=== PATIENT | female | born 1995 | race Caucasian/White ===

== ENCOUNTER 2017-09-19 01:51 | Inpatient (IN) | payer OTHER ==
--- NOTE | 2017-09-19 02:23 | EDPHY ---
H & P Stated Complaint: SI - Personal History LMP (Females 10-55): 15-21 Days Ago Current Tetanus Diphtheria and Acellular Pertussis (TDAP): Yes - Medical/Surgical History Hx Asthma: No Hx Chronic Respiratory Disease: No Hx Diabetes: No Hx Cardiac Disease: No Hx Renal Disease: No Hx Cirrhosis: No Hx Alcoholism: No Hx HIV/AIDS: No Hx Splenectomy or Spleen Trauma: No Other PMH: BIPOLAR, UMBILICAL HERNIA, TONSIL - Social History Smoking Status: Current some day smoker Time Seen by Provider: 09/19/17 02:10 HPI/ROS: Chief Complaint: Suicidal ideation HPI: 22-year-old female with a history of bipolar disorder and depression is presenting with worsening prepped depression last 3 weeks and suicidal ideation for the last 3 days. She thinks he has increasing stressors from being back at school. She has a plan to hang herself. Has a history of suicidal ideation in the past but has never made a suicide attempt but she was hospitalized and put on medical leave for depression from a year ago. She is compliant with her medications. She denies any alcohol or other drug use this morning. No other ingestions. ROS: 10 point Review of Systems is negative except as noted in the HPI. PMH: Bipolar disorder Social History: No smoking, no alcohol, no recreational drug use Family History: non-contributory Physical Exam: Gen: Awake, Alert, No Distress HEENT: Nose: no rhinorrhea Eyes: PERRLA, EOMI Mouth: Moist mucosa Neck: Supple, no JVD Chest: nontender, lungs clear to auscultation Heart: S1, S2 normal, no murmur Abd: Soft, non-tender, no guarding Back: no CVA tenderness, no midline tenderness Ext: no edema, non-tender Skin: no rash Neuro: CN II-XII intact, Sensation grossly intact, Strength 5/5 in bilateral upper and lower extremities ([place]avez) Constitutional: Initial Vital Signs Temperature (C) 36.4 C 09/19/17 01:57 Heart Rate 77 09/19/17 01:57 Respiratory Rate 16 09/19/17 01:57 Blood Pressure 128/65 H 09/19/17 01:57 O2 Sat (%) 95 09/19/17 01:57 O2 Delivery Mode Room Air Allergies/Adverse Reactions: lamotrigine [From Lamictal] Allergy (Verified 09/19/17 08:24) Rash Home Medications: Medication Instructions Recorded ARIPiprazole [Abilify 10 mg (*)] 10 mg PO DAILY 09/19/17 FLUoxetine [Prozac 20 MG (*)] 20 mg PO DAILY 09/19/17 Prazosin HCl 2 mg PO BID 09/19/17 Medical Decision Making ED Course/Re-evaluation: 719: Patient has been accepted to [address] [place] [address] Dias. This patient was [place] over to [place] at shift [place]. I filled out the appropriate transfer paperwork. (Ruddy River) [id number] patient signed out to Dr. River pending mental health evaluation ([place]avez) - Data Points Laboratory Results: Laboratory Results 09/19/17 02:39 09/19/17 02:39 Medications Given: Aripiprazole (Abilify) 10 mg PO DAILY [facility] Stop: 03/18/18 13:44 Last Admin: 09/19/17 14:28 Dose: 10 mg Hydroxyzine HCl (Hydroxyzine Hcl) 25 mg PO Q6HRS PRN PRN Reason: Anxiety or insomnia Stop: 03/18/18 10:27 Last Admin: 09/19/17 14:28 Dose: 25 mg Prazosin HCl (Minipress) 1 mg PO BID [facility] Stop: 03/18/18 20:59 Last Admin: 09/19/17 20:34 Dose: 1 mg Discontinued Medications Acetaminophen (Tylenol) 650 mg PO EDNOW ONE Stop: 09/19/17 07:10 Last Admin: 09/19/17 08:22 Dose: 650 mg Departure - Departure Disposition: [facility] IP Clinical Impression: Suicidal ideation Depression Qualifiers: Depression Type: other depression Qualified Code(s): F32.89 - Other specified depressive episodes Condition: Fair
[2017-09-19 02:59] LABS: PLATELET COUNT 282 10^3/uL (150-400)
[2017-09-19] MEDS ORDERED: ACETAMINOPHEN 325 MG TAB PO ONE (07:09)
[2017-09-19] MEDS ORDERED: MAG HYDROX/AL HYDROX/SIMETH 30 ML UDCUP PO PRN (10:26)
[2017-09-19] MEDS ORDERED: MAGNESIUM HYDROXIDE 30 ML UDCUP PO PRN (10:26)
[2017-09-19] MEDS ORDERED: ACETAMINOPHEN 325 MG TAB PO PRN (10:26)
[2017-09-19] MEDS ORDERED: GABAPENTIN 300 MG CAP PO PRN (13:39)
--- NOTE | 2017-09-19 14:26 | BCON ---
[f rep st] BEHAVIORAL HEALTH CONSULTATION INTERNAL MEDICINE CONSULTATION DATE OF CONSULTATION: 09/19/2017 REFERRING PHYSICIAN: Elvin Dias MD REASON FOR CONSULTATION: Medical clearance for inpatient behavioral health stay. HISTORY OF PRESENT ILLNESS: This patient was brought in to the emergency department with her boyfriend after experiencing suicidal ideation. She has a history of bipolar disorder and was on her medication. She was evaluated by the mental health team and admitted for further psychiatric care. She currently is without any acute complaints. PAST MEDICAL HISTORY: 1. Bipolar disorder. 2. Migraine headaches. PAST SURGICAL HISTORY: She has not had any surgeries. MEDICATIONS: 1. Aripiprazole 10 mg daily. 2. Fluoxetine 20 mg daily. 3. Prazosin 2 mg b.i.d. ALLERGIES: Lamotrigine. SOCIAL HISTORY: She lives with her boyfriend. She is a nonsmoker and uses occasional alcohol. 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 FAMILY HISTORY: Noncontributory. REVIEW OF SYSTEMS: She denies headache at present. She reports intermittent leg pain and ankle pain, which she notices at night. Sometimes the pain occurs together with swelling, but not always. It can interfere with attaining sleep, but does not awaken her from sleep. She denies any joint stiffness. She denies fever, chills, weight change, cough, dyspnea, nausea, vomiting, constipation, diarrhea, or dysuria. Otherwise, a 10-point review of systems is negative. PHYSICAL EXAM: VITAL SIGNS: Blood pressure is 115/72, heart rate 92, respiratory rate 20, oxygen saturation 94% on room air, and temperature is 36.9 degrees centigrade. Her weight is 59 kg for a body mass index of 25. GENERAL: This is an overweight appearing woman who appears her chronologic age. She is cooperative and in no acute distress. HEENT: Extraocular movements are intact. Pupils are dilated, round, and reactive. Mucous membranes are moist. Dentition is in good condition. NECK: Supple. HEART: Regular rate and rhythm with no murmurs, rubs, or gallops. LUNGS: Clear to auscultation bilaterally. ABDOMEN: Benign. EXTREMITIES: There is no cyanosis, clubbing, or edema. She is nontender in the lower legs. She has normal range of motion at the ankles. There is no joint effusion. NEUROLOGIC: She is alert and oriented x3. Cranial nerves 2-12 are grossly intact. There is no focal weakness. Sensation is intact to light touch and gait is within normal limits. LABORATORY DATA: Labs from emergency department reveal a CBC that was overall within normal limits. She had a slight elevation of absolute monocytes of no clinical significance. Serum chemistry revealed a slightly low carbon dioxide at 21. BUN was low at 5. Otherwise, renal function and electrolytes were within normal limits. Beta hCG was negative for . Toxicology screens in the urine and serum were negative for ethyl alcohol and substances of abuse. ASSESSMENT AND RECOMMENDATIONS: 1. Bipolar disorder with suicidal ideation, pending further evaluation and management per Psychiatry and the mental health team. 2. Migraines with last headache approximately 2 months ago. They do not appear to be frequent enough to merit prophylactic medication. She has acetaminophen ordered, which should be adequate. 3. Intermittent leg pain of unclear etiology. This does not seem to be consistent with any rheumatologic disease. She was advised to follow up with primary care after discharge. 4. I see no medical contraindications to this patient's continued stay on the inpatient behavioral health unit or to any psychiatric medications or procedures. Thank you very much for including me in the care of this patient and please do not hesitate to contact me or the hospitalist service should there be need for further medical evaluation. /[id number]/MODL MTDD
[2017-09-19] MEDS: ARIPiprazole 10 MG TAB PO SCH (14:28)
[2017-09-19] MEDS: hydrOXYzine HCL 25 MG TAB PO PRN (14:28)
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
[2017-09-19] MEDS: PRAZOSIN HCL 1 MG CAP PO SCH (20:34)
[2017-09-20 07:22] VITALS: RESP 14; O2SAT 96
[2017-09-20] MEDS: ARIPiprazole 10 MG TAB PO SCH (08:54)
[2017-09-20] MEDS: PRAZOSIN HCL 1 MG CAP PO SCH ×2 (08:55→20:18)
[2017-09-20] MEDS: hydrOXYzine HCL 25 MG TAB PO PRN (09:22)
--- NOTE | 2017-09-20 15:42 | SOAPPROG ---
SOAP Progress Note Assessment/Plan: Assessment: 22 yo female, part-time [employer] student, lives with parents in [place]. She has h/ o bipolar do, borderline personality traits. She was admitted for threatening to hang herself. She tied rope around her neck, but took it off and told her BF what she'd done. Plan: 09/20/17 15:36 1. [facility] - Dr. Jennings made medication adjustments yesterday. Patient says hydroxyzine is "helping" her anxiety. She denies any SI/HI. Feels "less depressed." 2. Recommend DBT or similar individual and group therapy to improve coping skills and help patient deal more effectively with stressors. Patient admits she has labile mood. This is more likely d/t poor affect regulation consistent with personality disorder rather than true bipolar sarabjit. Subjective: Met with patient, reviewed chart and d/w staff. Patient says she is feeling "better" since starting hydroxyzine for her anxiety. She said she felt "sad" and was crying this AM in her room b/c she felt "scared and anxious." However, by this afternoon, patient was feeling "much better" and was smiling and laughing with peers. She admits "when I'm distracted" and has something "other than myself" to focus on, she feels "happy" and less anxious. She says her moods "change very frequently" and have "a lot" to do with what is going on around her, especially what other people are doing and how they are treating her. She says she is "very sensitive" to other people's reactions to her. Patient says she believes her mood instability is a sign of "mixed state" of bipolar disorder. This MD believes her poor affect regulation, poor self-image and heightened sensitivity to the way she is treated by others is a stronger indicator of borderline personality disorder rather than bipolar disorder. MD recommend MMPI or similar personality inventory to get clearer picture of the nature of her mood lability. She denies any SI/HI today. Objective: Vital Signs Temp Pulse Resp BP Pulse Ox 36.5 C 96 14 114/56 L 96 09/20/17 06:00 09/20/17 06:00 09/20/17 06:00 09/20/17 06:00 09/20/17 06:00 MSE: Affect: Euthymic (c/o sadness earlier in day, but none present when MD saw patient) Mood: "Fine" TP: Linear TC: No SI/HI, no AH/VH Insight/Judgment: Poor - Time Spent With Patient Time Spent With Patient: 25" - Pending Discharge Pending Discharge Within 24 Hours: No Pending Discharge Within 48 Hours: No ICD10 Worksheet Patient Problems: Problems Problem Status Onset Depression Acute Suicidal ideation Acute
[2017-09-21 06:30] VITALS: TEMP 98
[2017-09-21] MEDS: PRAZOSIN HCL 1 MG CAP PO SCH ×2 (10:00→20:35)
[2017-09-21] MEDS: ARIPiprazole 10 MG TAB PO SCH (10:00)
--- NOTE | 2017-09-21 15:06 | SOAPPROG ---
SOAP Progress Note Assessment/Plan: Assessment: 22 yo female, part-time [employer] student, lives with parents in [place]. She has h/ o bipolar do, borderline personality traits. She was admitted for threatening to hang herself. She tied rope around her neck, but took it off and told her BF what she'd done. Plan: 09/20/17 15:36 1. [facility] - Dr. Jennings made medication adjustments yesterday. Patient says hydroxyzine is "helping" her anxiety. She denies any SI/HI. Feels "less depressed." 2. Recommend DBT or similar individual and group therapy to improve coping skills and help patient deal more effectively with stressors. Patient admits she has labile mood. This is more likely d/t poor affect regulation consistent with personality disorder rather than true bipolar sarabjit. 09/21/17 15:03 1. CCM - patient doing "a lot better" today, denies any depressed mood, no crying, no sadness, denies any SI/HI 2. Likely to d/c tomorrow when hold expires. 3. Needs f/u with therapist, referral to IOP recommended if patient willing to go and f/u with prescriber. Subjective: Met with patient, reviewed chart and d/w staff. Patient present with bright, cheerful affect, smiling and laughing with peers in group. She tells that she has been feeling "much better" since yesterday afternoon. No further episodes of mood lability, sadness, crying or depression. She denies feeling helpless, hopeless and denies any SI/HI. Objective: Vital Signs Temp Pulse Resp BP Pulse Ox 36.6 C 85 14 103/56 L 96 09/21/17 06:00 09/21/17 06:00 09/21/17 06:00 09/21/17 06:00 09/21/17 06:00 MSE: Affect: Euthymic Mood: "Good" TP: Linear TC: Denies any SI/HI, no evidence of psychosis Insight/Judgment: Fair - Time Spent With Patient Time Spent With Patient: 20" - Pending Discharge Pending Discharge Within 24 Hours: No Pending Discharge Within 48 Hours: No ICD10 Worksheet Patient Problems: Problems Problem Status Onset Depression Acute Suicidal ideation Acute
[2017-09-21] MEDS: hydrOXYzine HCL 25 MG TAB PO PRN (20:35)
[2017-09-22] MEDS: ARIPiprazole 10 MG TAB PO SCH (08:50)
[2017-09-22] MEDS: PRAZOSIN HCL 1 MG CAP PO SCH (08:50)
--- NOTE | 2017-09-22 15:12 | SOAPPROG ---
SOAP Progress Note Assessment/Plan: Assessment: 22 yo female, part-time [employer] student, lives with parents in [place]. She has h/ o bipolar do, borderline personality traits. She was admitted for threatening to hang herself. She tied rope around her neck, but took it off and told her BF what she'd done. Plan: 09/20/17 15:36 1. [facility] - Dr. Jennings made medication adjustments yesterday. Patient says hydroxyzine is "helping" her anxiety. She denies any SI/HI. Feels "less depressed." 2. Recommend DBT or similar individual and group therapy to improve coping skills and help patient deal more effectively with stressors. Patient admits she has labile mood. This is more likely d/t poor affect regulation consistent with personality disorder rather than true bipolar sarabjit. 09/21/17 15:03 1. CCM - patient doing "a lot better" today, denies any depressed mood, no crying, no sadness, denies any SI/HI 2. Likely to d/c tomorrow when hold expires. 3. Needs f/u with therapist, referral to IOP recommended if patient willing to go and f/u with prescriber. 09/22/17 15:08 1. Patient says meds are "helping a lot" with her anxiety and mood. She denies feeling depressed and denies any SI/HI. 2. Will change Prazosin to HS dosing only since patient is taking for nightmares. She had low DBP (< 60) the last 2 days. 3. Patient has f/u with OP therapist, Maria G Nobles, on 09/23/17 at 1700. 4. Will d/c tomorrow Subjective: Met with patient, reviewed chart and d/w staff. Patient present bright affect, cheerful, smiling. She says she is "pleased I got my hope back." She states that she feels "more stable" and "calm." She says the gabapentin and hydroxyzine make her feel "a lot less restless." She rates her depression as 1/ 10 and denies any thoughts, plan or intent to hurt herself. Objective: Vital Signs Temp Pulse Resp BP Pulse Ox 36.6 C 85 14 103/56 L 96 09/21/17 06:00 09/21/17 06:00 09/21/17 06:00 09/21/17 06:00 09/21/17 06:00 MSE: Affect: Euthymic Mood: "A lot better" TP: Linear TC: Denies any SI/HI Insight/Judgment: Fair - Time Spent With Patient Time Spent With Patient: 20" - Pending Discharge Pending Discharge Within 24 Hours: No Pending Discharge Within 48 Hours: No ICD10 Worksheet Patient Problems: Problems Problem Status Onset Depression Acute Suicidal ideation Acute
[2017-09-22] MEDS ORDERED: PRAZOSIN HCL 1 MG CAP PO SCH (21:00)
[2017-09-23 06:57] VITALS: BP 98/55; PULSE 82
[2017-09-23] MEDS: ARIPiprazole 10 MG TAB PO SCH (08:41)
--- NOTE | 2017-09-23 16:04 | BDS ---
[f rep st] BEHAVIORAL HEALTH DISCHARGE SUMMARY REASONS FOR ADMISSION: The patient is 22-year-old female with a history of bipolar disorder and depr ession, who was presenting with worsening depression x 3 weeks and suicidal ideation for the last 3 d ays. She thinks she has increasing stressors due to being back in school. She had a plan to hang he rself, made a noose but then set it aside and called her boyfriend instead, told him what she was matthew nning to do. She has a history of SI but has never made a suicide attempt in the past. ADMITTING DIAGNOSES: 1. Bipolar disorder, most recent episode mixed. 2. Borderline personality traits. 3. Psychosocial stressors include academic stress, lack of social support, conflict with boyfriend. PHYSICAL EXAMINATION: Please see Dr. Dontrell Hugo's H and P for details. ADMISSION LABS: White cell count was 8.3, hemoglobin 14.3, hematocrit 41.5, platelet count 282. Sod ium was 139, potassium was 3.8, chloride was 105, hemoglobin A1c was 5.2, AST was 26, ALT was 33. Tr iglycerides 34, cholesterol 148, LDL 74, HDL 68. TSH 4.620. Beta HCG was negative. Her urine drug screen was negative for all substances. HOSPITAL COURSE: This MD saw the patient over the weekend after she was admitted, noted that Dr. Dwain fung had made some medication adjustments including adding gabapentin at h.s. for anxiety as well as p.r.n. hydroxyzine. The patient stated that these medications were "very helpful" and that she was r eporting much less anxiety and she was sleeping much better. She also felt much less depressed. She was denying any thoughts, plans or intents to hurt herself. She said that she had briefly felt scar ed and anxious when she was first admitted to the hospital, but said that those feelings had gone anabell y very quickly. When MD met with the patient, her presentation was very bright and cheerful, she was laughing and smi ling, very polite and pleasant. She was interacting appropriately with her peers, attending groups a nd participating in milieu activities. She said that, "when I am distracted and have something to do , I feel much better." She says normally, her moods change "very frequently" but during her hospital course, patient said that she felt much more "stable" and said that her moods were much more "consis tent". She says she is usually "very sensitive" to other people's reactions to her, and she says sandoval t when other people do not treat her well or she feels bad about something that she has done, that ravi guzman gets very depressed and sad. She admitted that she did have a whole lot of coping techniques or sk ills to use when she was dealing with stress or interpersonal conflict, and suggested that she gissel ht want to participate in a DBT IOP or similar type of group therapy to work on developing interperso nal skills. The patient thought that was a good idea. On day of discharge, the patient says she was "very happy" to be going home. Her boyfriend came to p ick her up. She said that things are "much better" for her. She denied feeling depressed. She jose ed any anxiety. She said that she has been sleeping "a whole lot better" since she has been here. N o episodes of panic. She denied feeling hopeless, helpless. Denies anhedonia. She was sleeping wel l and eating well. During her hospital stay, she denied any thoughts, plans or intents to hurt herse lf or hurt anyone else. She is looking forward to participating in group therapy. She is going to g o back to seeing her outpatient therapist, as well as her outpatient prescriber. She felt like the m edications were "helping", and that she would like to stay on them. DISCHARGE MEDICATIONS: The patient was given a prescription for Abilify 10 mg p.o. daily, 30 tabs, n o refills. Neurontin 200 mg p.o. at bedtime p.r.n., 30 caps, no refills. Hydroxyzine 25 mg daily p. r.n. 30 tabs, no refills. Prazosin 1 mg p.o. at bedtime, 30 tabs, no refills. The patient was put o n prazosin for nightmares and she said it was very helpful for her. DISCHARGE DIAGNOSES: 1. Major depressive disorder, recurrent, severe, without psychotic features. 2. Borderline personality disorder. 3. Psychosocial stressors include lack of social support, conflict with boyfriend and academic stres sors. Lack of personal coping skills. CONDITION AT DISCHARGE: Stable. Patient reports that her mood is "really good." Patient says that she is feeling "happy" today. Denies any thoughts, plans or intents to hurt herself or anyone else. She denies feeling depressed. ATTITUDE: Patient is "very excited" about going back home, getting back to school and pursuing outpa tient treatment. FOLLOWUP APPOINTMENTS: The patient is scheduled to see Maria G Hector on 09/23/2017 at 5 p.m., and then she has a followup with Oh Vaughn MD, her prescriber. She has an intake referral for the outpatient clinic at [facility] for possible IOP admission. /[id number]/MODL
== END 2017-09-23 11:25 | disposition home or self-care (01) | DRG 885 ==
LOC: BBEH 09:59
PROVIDERS: ADMIT Psychiatry & Neurology Psychiatry; ATTEND Psychiatry & Neurology Psychiatry
DX: F33.2 Major depressive disorder, recurrent severe without psychotic features (principal); F60.3 Borderline personality disorder; Z72.0 Tobacco use; G43.909 Migraine, unspecified, not intractable, without status migrainosus
CPT/HCPCS: 80305; G0480